=== PATIENT | male | born 1995 | race American Indian/Alaskan Native ===

== ENCOUNTER 2016-06-01 17:12 | Emergency (ER) | payer OTHER ==
[2016-06-01 17:19] VITALS: TEMP 97.9
[2016-06-01] MEDS ORDERED: Lidocaine 1% w Epi 1:100,000 Inj ONE (17:41)
--- NOTE | 2016-06-01 17:41 | C.PDOC ---
History Of Present Illness The patient presents to the ED for evaluation of rectal pain which began around 3 days ago. Patient states he was constipated 3 days ago and was straining and "pushing really hard" while using the bathroom. Patient notes he usually has regular bowel movements. Since the incident, patient has had increasing rectal pain and reports sensation of a "ball down there." Patient states he experienced similar symptoms around 1 year ago and was evaluated in the ED. During his visit, patient underwent an abscess drainage procedure. Patient reports his abscess during that time was much bigger in size than what he feels today. Patient denies fever, chills, abdominal pain, rectal bleeding, or receptive sexual intercourse. Time Seen by Provider: 06/01/16 17:32 Chief Complaint (Nursing): Abnormal Skin Integrity History Per: Patient History/Exam Limitations: no limitations Onset/Duration Of Symptoms: Days (3) Current Symptoms Are (Timing): Still Present Quality Of Symptoms: Painful. denies: Draining Additional History Per: Patient Past Medical History Reviewed: Historical Data, Nursing Documentation, Vital Signs Vital Signs: Last Vital Signs Temp 97.9 F 06/01/16 17:17 Pulse 75 06/01/16 18:06 Resp 17 06/01/16 18:06 BP 126/72 06/01/16 18:06 Pulse Ox 100 06/03/16 18:52 - Medical History PMH: Anemia, Sexually Transmitted Disease Surgical History: No Surg Hx Family History: States: Unknown Family Hx - Social History Hx Tobacco Use: Yes Hx Alcohol Use: No Hx Substance Use: No Review Of Systems Except As Marked, All Systems Reviewed And Found Negative. Constitutional: Negative for: Fever, Chills Gastrointestinal: Positive for: Rectal Pain. Negative for: Abdominal Pain, Other (no rectal bleeding ) Physical Exam - Physical Exam Appears: Non-toxic, No Acute Distress Skin: Normal Color, Warm, Dry Gastrointestinal/Abdominal: Soft, No Tenderness, No Guarding, No Rebound Rectal: Mass (9 o'clock position: 0.5cm round, skin-colored, slightly fluctuant mass that is tender to palpation. ), Tenderness, Other (No surrounding induration or erythema ) Male Genital: Normal Inspection Neurological/Psych: Oriented x3, Normal Speech, Normal Cognition Gait: Steady ED Course And Treatment O2 Sat by Pulse Oximetry: 100 (on RA) Pulse Ox Interpretation: Normal Medical Decision Making Medical Decision Making: Patient received Percocet PO. Local anesthesia achieved with 1% Lidocaine. Aspirated small amount of "old" blood. Small opening made with number 11 blade. ~1ml of clotted blood expressed. Patient tolerated well. Disposition Counseled Patient/Family Regarding: Diagnosis, Need For Followup - Disposition Referrals: Kyle Zhou MD [Staff Provider] - Disposition: HOME/ ROUTINE Disposition Time: 17:59 Condition: GOOD Additional Instructions: Return to the ED for any new or worsening symptoms Prescriptions: Docusate [Colace] 1 cap PO TID PRN #90 cap PRN Reason: .constipation oxyCODONE/Acetaminophen [Percocet 5/325 mg Tab] 1 tab PO Q4H PRN #12 tab PRN Reason: .severe pain Instructions: Sitz Bath (GEN), Rectal Pain (ED) - Clinical Impression Clinical Impression: Perirectal hematoma - Scribe Statement The provider has reviewed the documentation as recorded by the Scribe (Karmen Nelson) Provider Attestation: All medical record entries made by the Scribe were at my direction and personally dictated by me. I have reviewed the chart and agree that the record accurately reflects my personal performance of the history, physical exam, medical decision making, and the department course for this patient. I have also personally directed, reviewed, and agree with the discharge instructions and disposition.
[2016-06-01] MEDS ORDERED: Oxycodone/Acetaminophen 5/325 mg Tab ONE (17:57)
[2016-06-01] MEDS ORDERED: Oxycodone/Acetaminophen 5/325 mg Tab PO STA (17:58)
[2016-06-01] MEDS ORDERED: Epinephrine /Lidocaine HCL 1:100,000/2% 30 ml INJ ONE (17:58)
[2016-06-01 18:07] VITALS: BP 126/72; PULSE 75; RESP 17; O2SAT 100
== END 2016-06-01 18:06 | disposition home or self-care (01) ==
LOC: C.ER 17:12
DX: L76.32 Postprocedural hematoma of skin and subcutaneous tissue following other procedure (principal)